=== PATIENT | female | born 1985 | race Caucasian/White ===

== ENCOUNTER 2017-11-26 13:10 | Emergency (ER) | END 2017-11-26 17:55 | disposition home or self-care (01) ==

== ENCOUNTER 2017-11-28 16:02 | Emergency (ER) | END 2017-11-28 18:00 | disposition left against medical advice (07) ==

== ENCOUNTER 2018-10-05 13:20 | Emergency (ER) | payer SELFPAY ==
[~2018-10-05] VITALS: Ht 172.7 cm; Wt 84.7 kg
[~2018-10-05 13:20] MED LIST: INSU100C5 SQ; INSU100V23 SC; OMEP20CA16 PO; [UNRECOGNIZED DRUG - CODE] PO
[2018-10-05 13:24] VITALS: Ht 172.7 cm; Wt 84.7 kg
[2018-10-05] MEDS ORDERED: ONDANSETRON 4 MG INJ IV STA (13:46)
[2018-10-05] MEDS ORDERED: SOD CHLORIDE 0.9% 1,000 ML IV STA (13:46)
[2018-10-05] MEDS ORDERED: ONDA4TAB14 PO (14:46)
[2018-10-05 15:12] VITALS: BP 104/71; PULSE 94; RESP 15
--- NOTE | 2018-10-05 15:17 | ERD ---
ER Documentation Chief Complaint Chief Complaint NV, dizzy, low appetite x4d; worse today. LMP 08/25/18 HPI 33-year-old female presenting with nausea and vomiting for the last 4 days. Patient has a generalized headache and took Tylenol with no alleviation of symptoms. She last had her period on August 25 and has not taken a test. Patient has diabetes and is on pills but no insulin. NKDA. Surgical history . Social history denies ROS All systems reviewed and are negative except as per history of present illness. Medications Home Meds Active Scripts Ondansetron (Ondansetron Odt) 4 Mg Tab.rapdis, 4 MG PO Q6H PRN for NAUSEA AND/OR VOMITING, #10 TAB Prov:ALDO TALLEY PA-C 10/05/18 Reported Medications Famotidine* (Acid Indirect Sales Exec*) 20 Mg Tablet, 75 MG PO DAILY 10/09/12 Omeprazole* (Omeprazole*) 20 Mg Capsule.dr, 40 MG PO DAILY 10/09/12 Insulin Regular, Human* (Novolin R*) 100 U/Ml Vial, 0 SC sliding scale 10/09/12 Insulin Glargine,Hum.rec.anlog (Lantus) 100 U/Ml Cartridge, 10 SQ HS 10/09/12 Allergies Allergies: Coded Allergies: No Known Allergy (Verified , 10/05/18) PMhx/Soc History of Surgery: Yes (C SECTION) Anesthesia Reaction: No Hx Neurological Disorder: No Hx Respiratory Disorders: No Hx Cardiac Disorders: No Hx Psychiatric Problems: No Hx Alcohol Use: No Hx Substance Use: No Hx Tobacco Use: No FmHx Family History: No diabetes, No coronary disease, No other Physical Exam Vitals Vital Signs Date Temp Pulse Resp B/P (MAP) Pulse Ox O2 O2 Flow FiO2 Time Delivery Rate 10/05/18 98.1 94 15 104/71 100 Room Air 15:12 (82) 10/05/18 98.3 92 16 148/97 99 13:24 (114) Physical Exam GENERAL: The patient is well-appearing, well-nourished, in no acute distress HEENT: Atraumatic. Conjunctivae are pink. Pupils equal, round, and reactive to light. There is no scleral icterus. Tympanic membranes clear bilaterally. Oropharynx clear. No nystagmus or photophobia. NECK: C-spine is soft and supple. There is no meningismus. There is no cervical lymphadenopathy. No JVD. No bruits. No goiter. CHEST: Clear to auscultation bilaterally. There are no rales, wheezes or rhonchi. HEART: Regular rate and rhythm. No murmurs, clicks, rubs or gallops. No S3 or S4. Result Diagram: 10/05/18 1353 10/05/18 1353 Results 24 hrs Laboratory Tests Test 10/05/18 13:53 10/05/18 13:58 White Blood Count 6.6 10^3/ul Red Blood Count 4.97 10^6/ul Hemoglobin 14.2 g/dl Hematocrit 42.8 % Mean Corpuscular Volume 86.1 fl Mean Corpuscular Hemoglobin 28.6 pg Mean Corpuscular Hemoglobin Concent 33.2 g/dl Red Cell Distribution Width 13.0 % Platelet Count 206 10^3/UL Mean Platelet Volume 10.8 fl Immature Granulocytes % 0.200 % Neutrophils % 66.3 % Lymphocytes % 23.6 % Monocytes % 8.8 % Eosinophils % 0.6 % Basophils % 0.5 % Nucleated Red Blood Cells % 0.0 /100WBC Immature Granulocytes # 0.010 10^3/ul Neutrophils # 4.4 10^3/ul Lymphocytes # 1.6 10^3/ul Monocytes # 0.6 10^3/ul Eosinophils # 0.0 10^3/ul Basophils # 0.0 10^3/ul Nucleated Red Blood Cells # 0.0 10^3/ul Urine Color YELLOW Urine Clarity SLIGHTLY CLOUDY Urine pH 5.0 Urine Specific [place] 1.037 Urine Ketones NEGATIVE mg/dL Urine Nitrite NEGATIVE mg/dL Urine Bilirubin NEGATIVE mg/dL Urine Urobilinogen NEGATIVE mg/dL Urine Leukocyte Esterase NEGATIVE Rafael/ul Urine Microscopic RBC 3 /HPF Urine Microscopic WBC 5 /HPF Urine Squamous Epithelial Cells FEW /HPF Urine Mucus FEW /HPF Urine Hemoglobin NEGATIVE mg/dL Urine Glucose 3+ mg/dL Urine Total Protein NEGATIVE mg/dl Sodium Level 139 mmol/L Potassium Level 4.4 mmol/L Chloride Level 103 mmol/L Carbon Dioxide Level 25 mmol/L Anion Gap 11 Blood Urea Nitrogen 9 mg/dl Creatinine 0.58 mg/dl Est Glomerular Filtrat Rate mL/min > 60 mL/min Glucose Level 251 mg/dl Calcium Level 9.2 mg/dl Total Bilirubin 0.9 mg/dl Direct Bilirubin 0.00 mg/dl Indirect Bilirubin 0.9 mg/dl Aspartate Amino Transf (AST/SGOT) 17 IU/L Alanine Aminotransferase (ALT/SGPT) 37 IU/L Alkaline Phosphatase 65 IU/L Total Protein 7.9 g/dl Albumin 4.5 g/dl Globulin 3.40 g/dl Albumin/Globulin Ratio 1.32 Lipase 517 U/L POC Beta HCG, Qualitative POSITIVE Current Medications Medications Dose Sig/Muna Start Time Status Last (Trade) Ordered Route PRN Stop Time Admin Dose Reason Admin Sodium 1,000 ml @ Q1H STAT 10/05/18 DC 10/05/18 Chloride 1,000 mls/hr IV 13:46 10/05/18 14:08 14:45 Ondansetron 4 mg ONCE STAT 10/05/18 DC 10/05/18 HCl (Zofran IV 13:46 10/05/18 14:06 Inj) 13:47 Procedures/MDM ER course: 1 L normal saline given in the ED. IV Zofran given in ED. Positive test. MDM: 33-year-old female presenting with generalized dizziness and vomiting with nausea. Patient has a positive test and I believe her symptoms are associated with early . Patient does not have findings consistent with DKA. She does have hyperglycemia however no other elect lites imbalances or complications. No urinary tract infection noted. No signs of dehydration. Patient is discharged with strict ER precautions and told to follow-up with primary care within 1 to 2 days for close evaluation. Patient is also recommended to obtain care. All questions answered at discharge Departure Diagnosis: Primary Impression: Hyperglycemia Additional Impression: Condition: Stable Patient Instructions: Hyperglycemia (High Blood Sugar), , New Dx Referrals: COMMUNITY CLINICS YOU HAVE RECEIVED A MEDICAL SCREENING EXAM AND THE RESULTS INDICATE THAT YOU DO NOT HAVE A CONDITION THAT REQUIRES URGENT TREATMENT IN THE EMERGENCY DEPARTMENT. FURTHER EVALUATION AND TREATMENT OF YOUR CONDITION CAN WAIT UNTIL YOU ARE SEEN IN YOUR DOCTORS OFFICE WITHIN THE NEXT 1-2 DAYS. IT IS YOUR RESPONSIBILITY TO MAKE AN APPOINTMENT FOR FOLOW-UP CARE. IF YOU HAVE A PRIMARY DOCTOR --you should call your primary doctor and schedule an appointment IF YOU DO NOT HAVE A PRIMARY DOCTOR YOU CAN CALL OUR PHYSICIAN REFERRAL HOTLINE AT IF YOU CAN NOT AFFORD TO SEE A PHYSICIAN YOU CAN CHOSE FROM THE FOLLOWING [facility] CL[facility] [address] [facility]. [facility] [address] [facility]. [facility] [address] [facility] [facility] [phone] [address] [facility]. [facility] [address] [facility]. [facility] [address] [employer] [place] [employer] [place] [id number] [facility] [address] [place] [address] OFFICE FAX , [facility] [address] [place] [address] [address] [address] [place] [address] [address] [facility] [address] [facility], [address], [facility] [address] [address] [facility] [address] [place] [address] [facility] [address] [place] [address] [address] [facility] [address] - [address], [facility] [address] [address] [address] [facility]. [address], [facility] [address] [address] [facility] [address] [place] [address] Additional Instructions: FOLLOW UP WITH YOUR PRIMARY CARE PHYSICIAN TOMORROW.Return to this facility if you are not improving as expected. ALDO TALLEY PA-C Oct 05, 2018 15:17
== END 2018-10-05 15:35 | disposition home or self-care (01) ==
LOC: FTE 13:20
DX: O99.810 Abnormal glucose complicating pregnancy (principal); R73.9 Hyperglycemia, unspecified; Z79.4 Long term (current) use of insulin
CPT/HCPCS: 36415; 76705; 80053; 81001; 81025; 83690; 85025; 96361; 96374; 99285; J2405; J7030; 81003